=== PATIENT | male | born 1975 | race Caucasian/White ===

== ENCOUNTER → 2020-06-27 | Outpatient (CLI) | payer OTHER ==
--- NOTE | 2020-06-27 12:48 | RAD ---
Right lower extremity venous ultrasound, : History: Pain right lower leg, M 79.661 Duplex evaluation including grayscale, color flow and spectral Doppler analysis was performed. The femoral and popliteal veins show no filling defects to suggest DVT. The visualized calf veins are unremarkable. There is a mildly prominent lymph node at the right groin. IMPRESSION: 1. There is no sonographic evidence of deep vein thrombosis in the right lower extremity. 2. Prominent lymph node right groin Electronically signed by: Agapito Patel MD (06/27/2020 12:46 PM) [id number]
== END ==
LOC: US 11:48
PROVIDERS: ATTEND Specialist
DX: R59.0 Localized enlarged lymph nodes (principal)
CPT/HCPCS: 93971

== ENCOUNTER 2020-10-24 09:16 | Emergency (ER) | payer OTHER ==
[~2020-10-24] VITALS: Ht 172.7 cm; Wt 88.1 kg
[2020-10-24 09:16] VITALS: BP 145/92
[2020-10-24] MEDS ORDERED: HYDROcodone/APAP 5/325MG 1 TAB TABLET PO ONE (09:45)
--- NOTE | 2020-10-24 10:00 | PHYS DOC ---
General Adult EDM: Chief Complaint: MECHANICAL FALL HPI: HPI: Patient is a 45-year-old male coming in after a fall on the ice. Patient fell onto his back and hit the back of his head. No loss of consciousness. Has a laceration to the back of his head. Denies any vision changes, nausea, vomiting. Last tetanus within 5 years. Has a history of liver disease and low platelets. Does not take any blood thinners. He otherwise has been well without any fevers, cough, vomiting or diarrhea. Review of Systems: Review of Systems: All other systems within normal limits except for as noted in the HPI Current Medications: Current Meds: Current Medications Medications (Trade) Dose Ordered Sig/Maolu Start Time Stop Time Status Last Admin Dose Admin Acetaminophen/ Hydrocodone Bitart (Lortab 5/325) 1 tab 1X ONCE 10/24/20 09:45 10/24/20 09:46 DC Allergies: Allergies: Allergies Coded Allergies Type Severity Reaction Last Updated Verified No Known Drug Allergies 10/24/20 No Physical Exam: PE: Constitutional: Well developed, well nourished, no acute distress, non-toxic appearance. [] HENT: Normocephalic, hematoma to occiput, bilateral external ears normal, nose normal. [] Eyes: PERRLA, conjunctiva normal, no discharge. [] Neck: C-spine tenderness] Cardiovascular: Regular rate and rhythm, brisk cap refill [] Lungs & Thorax: Non labored symmetric respirations, no tachypnea or respiratory distress [] Abdomen: Soft, nondistended. Skin: Warm, dry, no erythema, no rash. 2.5 cm laceration to occiput [] Back: Thoracic and lumbar tenderness, no CVA tenderness, no step-off or deformities. [] Extremities: No deformities, range of motion grossly intact, no lower extremity edema [] Neurologic: Alert and oriented X 3, no focal deficits noted. [] Psychologic: Affect normal, judgement normal, mood normal. [] EKG: EKG: [] Radiology/Procedures: Radiology/Procedures: PROCEDURE: CT HEAD AND CERVICAL SPINE WO EXAM: CT Head without IV contrast INDICATION: Reason: fall / Spl. Instructions: / History: TECHNIQUE: Multi-detector row CT images were obtained of the head without the use of IV contrast. All CT scans performed at this facility utilize dose optimization techniques as appropriate to the exam, including the following: Automated exposure control and adjustment of the mA and/or KV according to patient size (this includes techniques or standardized protocols for targeted exams where dose is indication/reason for exam). COMPARISON: None FINDINGS: BRAIN PARENCHYMA: No evidence of acute intraparenchymal hemorrhage or infarct. No abnormal parenchymal density or mass. VENTRICLES & EXTRA-AXIAL SPACES: Ventricles are within normal limits. Basilar cisterns are patent. No pathologic extra-axial fluid collection or mass. ORBITS: Orbital contents are unremarkable. SINUSES: Scattered mucosal thickening in the ethmoid air cells and right maxillary sinus is noted. There are bilateral mastoid effusions with surgical changes from previous right mastoidectomy OSSEOUS & SOFT TISSUES: Calvarium and skull base are intact. IMPRESSION: No acute intracranial pathology. 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 EXAM: CT Cervical Spine without IV contrast INDICATION: Reason: fall / Spl. Instructions: / History: TECHNIQUE: Multi-detector row CT images were obtained through the cervical spine without the use of IV contrast. Post-processing sagittal and coronal reconstructed images were obtained for interpretation. All CT scans performed at this facility utilize dose optimization techniques as appropriate to the exam, including the following: Automated exposure control and adjustment of the mA and/or KV according to patient size (this includes techniques or standardized protocols for targeted exams where dose is indication/reason for exam). COMPARISON: None FINDINGS: CRANIOCERVICAL JUNCTION: Unremarkable. ALIGNMENT: Alignment is within normal limits. OSSEOUS: No evidence of fracture or bone destruction. DISC SPACES: Disc osteophyte complex at C5-C6 results in minimal flattening of the ventral thecal sac but no high-grade spinal canal stenosis on noncontrast CT but FACET JOINTS: Unremarkable. SPINAL CANAL: Unremarkable. NEUROFORAMINA: Unremarkable. SOFT TISSUES: Multiple mildly prominent cervical lymph nodes are present bilaterally. These are most conspicuous in the level 2 brianne station. IMPRESSION: No acute traumatic findings in the cervical spine with mild lower cervical spinal degenerative changes noted.[] EXAM: CT Thoracic Spine without IV contrast INDICATION: Reason: fall / Spl. Instructions: / History: TECHNIQUE: Multi-detector row CT images were obtained through the thoracic spine without the use of IV contrast. Post-processing sagittal and coronal reconstructed images were obtained for interpretation. All CT scans performed at this facility utilize dose optimization techniques as appropriate to the exam, including the following: Automated exposure control and adjustment of the mA and/or KV according to patient size (this includes techniques or standardized protocols for targeted exams where dose is indication/reason for exam). COMPARISON: None FINDINGS: ALIGNMENT: Alignment is within normal limits. OSSEOUS: No evidence of fracture or bone destruction. DISC SPACES: Unremarkable. FACET JOINTS: Unremarkable. SPINAL CANAL: Unremarkable. NEUROFORAMINA: Unremarkable. SOFT TISSUES: Unremarkable. IMPRESSION: Normal CT of the thoracic spine. EXAM: CT Lumbar Spine without IV contrast INDICATION: Reason: fall / Spl. Instructions: / History: TECHNIQUE: Multi-detector row CT images were obtained through the lumbar spine without the use of IV contrast. Post-processing sagittal and coronal reconstructed images were obtained for interpretation. All CT scans performed at this facility utilize dose optimization techniques as appropriate to the exam, including the following: Automated exposure control and adjustment of the mA and/or KV according to patient size (this includes techniques or standardized protocols for targeted exams where dose is indication/reason for exam). COMPARISON: None FINDINGS: The lowest fully formed disc is referred to as the L5-S1 level. ALIGNMENT: Alignment is within normal limits. OSSEOUS: No evidence of fracture or bone destruction. DISC SPACES: Mild disc space narrowing at L5-S1 is present with vacuum phenomenon and endplate sclerosis with endplate osteophytic spurring. FACET JOINTS: Unremarkable. SPINAL CANAL: Unremarkable. NEUROFORAMINA: Unremarkable. SOFT TISSUES: Multiple prominent mesenteric and retroperitoneal varices are incidentally noted. IMPRESSION: No acute traumatic findings in the lumbar spine with lumbosacral junction disc degenerative change. Heart Score: Risk Factors: Risk Factors: DM, Current or recent (<one month) smoker, HTN, HLP, family history of CAD, obesity. Risk Scores: Score 0 - 3: 2.5% MACE over next 6 weeks - Discharge Home Score 4 - 6: 20.3% MACE over next 6 weeks - Admit for Clinical Observation Score 7 - 10: 72.7% MACE over next 6 weeks - Early Invasive Strategies Course & Med Decision Making: Course & Med Decision Making Pertinent Labs and Imaging studies reviewed. (See chart for details) Head wound cleaned and is superficial, no separation. Discussed wound care, does not need sutures or annmarie [] Dragon Disclaimer: Alonzo Disclaimer: This electronic medical record was generated, in whole or in part, using a voice recognition dictation system. Departure Departure: Impression: Primary Impression: Fall Additional Impression: Scalp abrasion Disposition: 01 DC HOME SELF CARE/HOMELESS Condition: STABLE Referrals: JOSE F ALDANA MD (PCP) Patient Instructions: Wound Care, [id number] WHITNEY HOWE MD Oct 24, 2020 10:00
--- NOTE | 2020-10-24 10:23 | RAD ---
EXAM: CT Head without IV contrast INDICATION: Reason: fall / Spl. Instructions: / History: TECHNIQUE: Multi-detector row CT images were obtained of the head without the use of IV contrast. All CT scans performed at this facility utilize dose optimization techniques as appropriate to the exam, including the following: Automated exposure control and adjustment of the mA and/or KV according to patient size (this includes techniques or standardized protocols for targeted exams where dose is ind ication/reason for exam). COMPARISON: None FINDINGS: BRAIN PARENCHYMA: No evidence of acute intraparenchymal hemorrhage or infarct. No abnormal parenchyma l density or mass. VENTRICLES & EXTRA-AXIAL SPACES: Ventricles are within normal limits. Basilar cisterns are patent. N o pathologic extra-axial fluid collection or mass. ORBITS: Orbital contents are unremarkable. SINUSES: Scattered mucosal thickening in the ethmoid air cells and right maxillary sinus is noted. T here are bilateral mastoid effusions with surgical changes from previous right mastoidectomy OSSEOUS & SOFT TISSUES: Calvarium and skull base are intact. IMPRESSION: No acute intracranial pathology. Paranasal sinus and bilateral mastoid inflammatory mucosal disease with prior bilateral mastoidectomi es. EXAM: CT Cervical Spine without IV contrast INDICATION: Reason: fall / Spl. Instructions: / History: TECHNIQUE: Multi-detector row CT images were obtained through the cervical spine without the use of IV contrast. Post-processing sagittal and coronal reconstructed images were obtained for interpretati on. All CT scans performed at this facility utilize dose optimization techniques as appropriate to th e exam, including the following: Automated exposure control and adjustment of the mA and/or KV accord ing to patient size (this includes techniques or standardized protocols for targeted exams where dose is indication/reason for exam). COMPARISON: None FINDINGS: CRANIOCERVICAL JUNCTION: Unremarkable. ALIGNMENT: Alignment is within normal limits. OSSEOUS: No evidence of fracture or bone destruction. DISC SPACES: Disc osteophyte complex at C5-C6 results in minimal flattening of the ventral thecal sa c but no high-grade spinal canal stenosis on noncontrast CT but FACET JOINTS: Unremarkable. SPINAL CANAL: Unremarkable. NEUROFORAMINA: Unremarkable. SOFT TISSUES: Multiple mildly prominent cervical lymph nodes are present bilaterally. These are most conspicuous in the level 2 brianne station. IMPRESSION: No acute traumatic findings in the cervical spine with mild lower cervical spinal degenerative change s noted. Electronically signed by: Addison Reyes MD (10/24/2020 10:21 AM) [facility] [place]
--- NOTE | 2020-10-24 10:31 | RAD ---
EXAM: CT Thoracic Spine without IV contrast INDICATION: Reason: fall / Spl. Instructions: / History: TECHNIQUE: Multi-detector row CT images were obtained through the thoracic spine without the use of IV contrast. Post-processing sagittal and coronal reconstructed images were obtained for interpretati on. All CT scans performed at this facility utilize dose optimization techniques as appropriate to th e exam, including the following: Automated exposure control and adjustment of the mA and/or KV accord ing to patient size (this includes techniques or standardized protocols for targeted exams where dose is indication/reason for exam). COMPARISON: None FINDINGS: ALIGNMENT: Alignment is within normal limits. OSSEOUS: No evidence of fracture or bone destruction. DISC SPACES: Unremarkable. FACET JOINTS: Unremarkable. SPINAL CANAL: Unremarkable. NEUROFORAMINA: Unremarkable. SOFT TISSUES: Unremarkable. IMPRESSION: Normal CT of the thoracic spine. EXAM: CT Lumbar Spine without IV contrast INDICATION: Reason: fall / Spl. Instructions: / History: TECHNIQUE: Multi-detector row CT images were obtained through the lumbar spine without the use of IV contrast. Post-processing sagittal and coronal reconstructed images were obtained for interpretation . All CT scans performed at this facility utilize dose optimization techniques as appropriate to the exam, including the following: Automated exposure control and adjustment of the mA and/or KV accordin g to patient size (this includes techniques or standardized protocols for targeted exams where dose i s indication/reason for exam). COMPARISON: None FINDINGS: The lowest fully formed disc is referred to as the L5-S1 level. ALIGNMENT: Alignment is within normal limits. OSSEOUS: No evidence of fracture or bone destruction. DISC SPACES: Mild disc space narrowing at L5-S1 is present with vacuum phenomenon and endplate scler osis with endplate osteophytic spurring. FACET JOINTS: Unremarkable. SPINAL CANAL: Unremarkable. NEUROFORAMINA: Unremarkable. SOFT TISSUES: Multiple prominent mesenteric and retroperitoneal varices are incidentally noted. IMPRESSION: No acute traumatic findings in the lumbar spine with lumbosacral junction disc degenerative change. Electronically signed by: Addison Reyes MD (10/24/2020 10:29 AM) [facility] [place]
[2020-10-24 10:45] LABS: BASO # 0.1 x10^3/uL (0.0-0.2); BASO % 2 % (0-3); EOS # 0.2 x10^3/uL (0.0-0.7); EOS % 4 % (0-3); HEMATOCRIT 28.5 % (39.0-53.0); LYMPH % 18 % (24-48); MEAN CORPUSCULAR HEMOGLOBIN 26 pg (25-35); MEAN CORPUSCULAR HGB CONC 32 g/dL (31-37); MEAN CORPUSCULAR VOLUME 83 fL (79-100); MONO # 0.9 x10^3/uL (0.0-1.1); MONO % 17 % (0-9); NEUT # 3.2 x10^3uL (1.8-7.7); NEUT % 58 % (31-73); PLATELET COUNT 66 x10^3/uL (140-400); RED BLOOD COUNT 3.45 x10^6/uL (4.30-5.70); RED CELL DISTRIBUTION WIDTH 17.7 % (11.5-14.5); WHITE BLOOD COUNT 5.5 x10^3/uL (4.0-11.0)
[2020-10-24 11:06] LABS: CALCIUM 9.1 mg/dL (8.5-10.1); CREATININE 0.7 mg/dL (0.7-1.3); GFR 122.5; POTASSIUM 3.7 mmol/L (3.5-5.1)
[2020-10-24 11:14] LABS: ALBUMIN 2.5 g/dL (3.4-5.0); ALBUMIN/GLOBULIN RATIO 0.4 (1.0-1.7); TOTAL PROTEIN 8.3 g/dL (6.4-8.2)
== END 2020-10-24 11:40 | disposition home or self-care (01) ==
LOC: ER 09:16
DX: S01.01XA Laceration without foreign body of scalp, initial encounter (principal); W00.9XXA Unspecified fall due to ice and snow, initial encounter; Y93.89 Activity, other specified; Y92.89 Other specified places as the place of occurrence of the external cause; Y99.8 Other external cause status
CPT/HCPCS: 36415; 70450; 72125; 72128; 72131; 80053; 85025; 99285-25

== ENCOUNTER 2021-03-17 21:20 | Emergency (ER) | payer OTHER ==
[~2021-03-17] VITALS: Ht 172.7 cm; Wt 88.1 kg
[2021-03-17 21:25] VITALS: BP 162/100
[2021-03-17] MEDS ORDERED: SILVER NITRATE STICK TP ONE ×2 (21:58→22:00)
--- NOTE | 2021-03-17 22:20 | PHYS DOC ---
Past History Past Medical History: Alcoholism, Anemia, Hypertension, Liver Disease, Other Past Surgical History: Appendectomy Alcohol Use: Sober General Adult EDM: Chief Complaint: NOSEBLEED HPI: HPI: 45-year-old male presents with external nosebleed. The patient has varicose veins. He has them on his nose as well. He has had a left superficial noseb leed for about 3 hours. He has been unable to get to stop so he came to the emergency room. Patient denies shortness of breath or dizziness. He has no other complaints at this time. Review of Systems: Review of Systems: Constitutional: Denies fever or chills Eyes: Denies change in visual acuity HENT: Denies nasal congestion or sore throat Respiratory: Denies cough or shortness of breath Cardiovascular: Denies chest pain or edema GI: Denies abdominal pain, nausea, vomiting, bloody stools or diarrhea : Denies dysuria Musculoskeletal: Denies back pain or joint pain Integument: Nosebleed left external nose Neurologic: Denies headache, focal weakness or sensory changes Endocrine: Denies polyuria or polydipsia Lymphatic: Denies swollen glands Psychiatric: Denies depression or anxiety Current Medications: Current Meds: Current Medications Medications (Trade) Dose Ordered Sig/Malou Start Time Stop Time Status Last Admin Dose Admin Silver Nitrate/ Potassium Nitrate (Silver Nitrate Stick) 1 each 1X ONCE 03/17/21 22:00 03/17/21 22:13 DC 03/17/21 22:00 1 EACH Allergies: Allergies: Allergies Coded Allergies Type Severity Reaction Last Updated Verified lisinopril Allergy Unknown 03/17/21 Yes Physical Exam: PE: Constitutional: Well developed, well nourished, no acute distress, non-toxic appearance. [] HENT: Normocephalic, atraumatic, bilateral external ears normal, oropharynx moist, no oral exudates, nose normal. [] Eyes: PERRLA, EOMI, conjunctiva normal, no discharge. [] Neck: Normal range of motion, no tenderness, supple, no stridor. [] Cardiovascular: Heart rate regular rhythm, no murmur [] Lungs & Thorax: Bilateral breath sounds clear to auscultation [] Abdomen: Bowel sounds normal, soft, no tenderness, no masses, no pulsatile masses. [] Skin: Pinpoint nosebleed of the left external nose [] Back: No tenderness, no CVA tenderness. [] Extremities: No tenderness, no cyanosis, no clubbing, ROM intact, no edema. [] Neurologic: Alert and oriented X 3, normal motor function, normal sensory function, no focal deficits noted. [] Psychologic: Affect normal, judgement normal, mood normal. [] Current Patient Data: Vital Signs: Vital Signs Date Time Temp Pulse Resp B/P (MAP) Pulse Ox O2 Delivery O2 Flow Rate FiO2 03/17/21 21:25 98.0 93 162/100 (120) 98 03/17/21 21:20 16 Room Air EKG: EKG: [] Radiology/Procedures: Radiology/Procedures: [] Heart Score: C/O Chest Pain: N/A Risk Factors: Risk Factors: DM, Current or recent (<one month) smoker, HTN, HLP, family history of CAD, obesity. Risk Scores: Score 0 - 3: 2.5% MACE over next 6 weeks - Discharge Home Score 4 - 6: 20.3% MACE over next 6 weeks - Admit for Clinical Observation Score 7 - 10: 72.7% MACE over next 6 weeks - Early Invasive Strategies Course & Med Decision Making: Course & Med Decision Making Pertinent Labs and Imaging studies reviewed. (See chart for details) The patient's bleeding would not stop with direct pressure. I was able to make it stop with cauterization using silver nitrate. The patient stable for discharge at this time. [] Dragon Disclaimer: Dragon Disclaimer: This electronic medical record was generated, in whole or in part, using a voice recognition dictation system. Departure Departure: Impression: Primary Impression: Bleeding from varicose vein Disposition: HOME / SELF CARE / HOMELESS Condition: IMPROVED Referrals: JOSE F ALDANA MD (PCP) Patient Instructions: Bleeding Varicose Veins MARK CHAMPION DO Mar 17, 2021 22:20
== END 2021-03-17 22:50 | disposition home or self-care (01) ==
LOC: ER 21:20
DX: I83.899 Varicose veins of unspecified lower extremity with other complications (principal); I10 Essential (primary) hypertension; F10.20 Alcohol dependence, uncomplicated; Z86.2 Personal history of diseases of the blood and blood-forming organs and certain disorders involving the immune mechanism; Z88.8 Allergy status to other drugs, medicaments and biological substances; Y90.9 Presence of alcohol in blood, level not specified
CPT/HCPCS: 99282

== ENCOUNTER 2021-07-06 17:15 | Emergency (ER) | payer OTHER ==
[~2021-07-06] VITALS: Ht 172.7 cm; Wt 78.5 kg
[2021-07-06] MEDS ORDERED: GELATIN SPONGE SIZE 12-7MM SPONGE. ONE (17:35)
--- NOTE | 2021-07-06 17:44 | PHYS DOC ---
Past History Past Medical History: Alcoholism, Anemia, Hypertension, Liver Disease, Other Additional Past Medical Histor: cirrhosis of the liver (MEKA HENSON DO) Past Surgical History: Appendectomy (MEKA HENSON DO) Alcohol Use: Sober (MEKA HENSON DO) General Adult EDM: Chief Complaint: NOSEBLEED HPI: HPI: 45-year-old male past medical history of daily alcohol abuse, presents the ED with complaints of picking outside of his right nose, now with persistent bleeding, unable to stop with direct pressure. Takes no routine medications-is not on any blood thinners. Reports his tetanus was up-to-date in the past 5 years. Was drinking alcohol prior to ED arrival. Denies any blunt trauma, bleeding disorders or need for blood transfusions. (MEKA HENSON DO) Review of Systems: Review of Systems: Constitutional: Denies fever or chills Eyes: Denies change in visual acuity HENT: Denies nasal congestion or sore throat Respiratory: Denies cough or shortness of breath Cardiovascular: Denies chest pain or edema GI: Denies nausea or vomiting Musculoskeletal: Denies back pain or joint pain Integument: Denies rash or cyanosis Neurologic: Denies focal weakness or sensory changes Psychiatric: Denies depression or anxiety (MEKA HENSON DO) Current Medications: Current Meds: Current Medications Medications (Trade) Dose Ordered Sig/Malou Start Time Stop Time Status Last Admin Dose Admin Gelatin (Gelfoam Size 12-7mm) 1 each STK-MED ONCE 07/06/21 17:35 07/06/21 17:35 DC (MEKA HENSON DO) Allergies: Allergies: Allergies Coded Allergies Type Severity Reaction Last Updated Verified lisinopril Allergy Unknown 07/06/21 Yes (MEKA HENSON DO) Physical Exam: PE: Constitutional: Hypertensive, afebrile, alcohol on breath HENT: Normocephalic, atraumatic, right external nasal bridge with 2 mm area of bleeding, no interior/anterior/or exterior nasal bleeding Eyes: PERRLA, EOMI, conjunctiva normal, no discharge. Neck: Normal range of motion, supple, Cardiovascular: S1/2 present, tachycardic Lungs & Thorax: Speaking in full sentences, bilateral equal chest rise, no tachypnea or increased work of breathing Skin: Warm, dry, no contusions/petechiae or bruising Extremities: No tenderness, no cyanosis, Neurologic: Alert and oriented X 3, normal motor function, normal sensory function, no focal deficits noted. [] Psychologic: Affect normal, judgement normal, mood normal. [] ([facility] Current Patient Data: Vital Signs: Vital Signs Date Time Temp Pulse Resp B/P (MAP) Pulse Ox O2 Delivery O2 Flow Rate FiO2 07/06/21 17:20 98.0 105 22 141/107 (118) 96 Room Air ([facility]) EKG: EKG: [] ([facility]) Radiology/Procedures: Radiology/Procedures: [] ([facility]) Heart Score: C/O Chest Pain: No Risk Factors: Risk Factors: DM, Current or recent (<one month) smoker, HTN, HLP, family history of CAD, obesity. Risk Scores: Score 0 - 3: 2.5% MACE over next 6 weeks - Discharge Home Score 4 - 6: 20.3% MACE over next 6 weeks - Admit for Clinical Observation Score 7 - 10: 72.7% MACE over next 6 weeks - Early Invasive Strategies ([facility]) Course & Med Decision Making: Course & Med Decision Making Pertinent Labs and Imaging studies reviewed. (See chart for details) Concern for external bleeding after picking outside of patient's nose and nonalcoholic. CBC for platelets pending. Patient is tachycardic, likely related to alcohol intoxication. Bleeding not resolved with gelatin sponge application. Quick clot applied. Due to shift change patient was signed out to oncoming physician Dr. Bernal for further medical evaluation and disposition. ([facility]) Course & Med Decision Making Patient care handed off to me at checkout pending labs and hemostasis of skin lesion. Vital signs initially notable for tachycardia which resolved in the ED. Placed L ET on wound and did direct pressure which helped achieve hemostasis. Laboratory analysis notable for anemia and thrombocytopenia which patient states is normal for him as he has liver issues. States that 34 is actually higher than his last 1. Discussed strategies for controlling superficial bleeds like this at home. Advised to call his primary care physician KORIN in the morning to discuss ED visit and set up a follow-up KORIN. Gave strict return precautions to the ED. Patient grateful, verbalized understanding and agreed with plan of discharge. (JULITA BERNAL MD) Dragon Disclaimer: Dragon Disclaimer: This electronic medical record was generated, in whole or in part, using a voice recognition dictation system. (MEKA HENSON DO) Departure Departure: Impression: Primary Impression: Alcohol abuse Additional Impression: Hemorrhage of skin lesion Disposition: HOME / SELF CARE / HOMELESS Condition: GOOD Referrals: JOSE F ALDANA MD (PCP) Additional Instructions: Thank you for coming into the emergency department tonight and allowing us to take care of you. As we discussed, you can use the strategies employed here with direct pressure and ice and keeping your head above your heart to control superficial skin lesions. Is very important that you follow-up in the morning with your primary care physician to let them know that your hemoglobin was 10.6 and your platelets were 10.4. Please make an appointment as soon as possible. Please come back to the ED with new or concerning symptoms as discussed. MEKA HENSON DO Jul 06, 2021 17:44 JULITA BERNAL MD Jul 06, 2021 19:55
[2021-07-06] MEDS: GELATIN SPONGE SIZE 12-7MM SPONGE. TP ONE (17:45)
[2021-07-06 18:22] LABS: BASO # 0.2 x10^3/uL (0.0-0.2); BASO % 3 % (0-3); EOS # 0.1 x10^3/uL (0.0-0.7); EOS % 2 % (0-3); HEMOGLOBIN 10.6 g/dL (13.0-17.5); LYMPH # 1.1 x10^3/uL (1.0-4.8); LYMPH % 21 % (24-48); MEAN CORPUSCULAR HEMOGLOBIN 36 pg (25-35); MEAN CORPUSCULAR HGB CONC 33 g/dL (31-37); MEAN CORPUSCULAR VOLUME 109 fL (79-100); MONO # 0.7 x10^3/uL (0.0-1.1); MONO % 14 % (0-9); NEUT # 3.1 x10^3uL (1.8-7.7); NEUT % 60 % (31-73); PLATELET COUNT 34 x10^3/uL (140-400); RED BLOOD COUNT 2.95 x10^6/uL (4.30-5.70); RED CELL DISTRIBUTION WIDTH 17.6 % (11.5-14.5); WHITE BLOOD COUNT 5.2 x10^3/uL (4.0-11.0)
[2021-07-06] MEDS ORDERED: LIDOCAINE/EPI/TETRACAINE TOPICAL GEL 3 ML. TP ONE (18:53)
[2021-07-06] MEDS ORDERED: MIDAZOLAM HCL PF 5 MG/5 ML VIAL. IV ONE (19:00)
[2021-07-06 19:02] LABS: PLT ESTIMATE DECREASED (ADEQUATE)
[2021-07-06] MEDS: LIDOCAINE/EPI/TETRACAINE TOPICAL GEL 3 ML. TP ONE (19:15)
[2021-07-06 20:25] VITALS: BP 147/87
== END 2021-07-06 20:25 | disposition home or self-care (01) ==
LOC: ER 17:15
DX: F10.20 Alcohol dependence, uncomplicated (principal); R58 Hemorrhage, not elsewhere classified; L98.8 Other specified disorders of the skin and subcutaneous tissue; I10 Essential (primary) hypertension; Z86.2 Personal history of diseases of the blood and blood-forming organs and certain disorders involving the immune mechanism; Z88.8 Allergy status to other drugs, medicaments and biological substances; Y90.9 Presence of alcohol in blood, level not specified
CPT/HCPCS: 36415; 85025; 99283

== ENCOUNTER 2021-10-16 15:03 | Observation (INO) | payer SELFPAY ==
[~2021-10-16] VITALS: Ht 172.7 cm; Wt 75.1 kg
[2021-10-16] MEDS ORDERED: IV NORMAL SALINE 1,000ML 1,000 ML IV ONE (15:30)
[2021-10-16 15:49] LABS: BASO # 0.3 x10^3/uL (0.0-0.2); BASO % 7 % (0-3); EOS % 1 % (0-3); HEMATOCRIT 26.3 % (39.0-53.0); HEMOGLOBIN 8.6 g/dL (13.0-17.5); LYMPH # 0.9 x10^3/uL (1.0-4.8); LYMPH % 18 % (24-48); MEAN CORPUSCULAR HEMOGLOBIN 32 pg (25-35); MEAN CORPUSCULAR HGB CONC 33 g/dL (31-37); MEAN CORPUSCULAR VOLUME 99 fL (79-100); MONO % 20 % (0-9); NEUT # 2.7 x10^3uL (1.8-7.7); NEUT % 55 % (31-73); PLATELET COUNT 130 x10^3/uL (140-400); RED BLOOD COUNT 2.66 x10^6/uL (4.30-5.70); RED CELL DISTRIBUTION WIDTH 19.2 % (11.5-14.5)
--- NOTE | 2021-10-16 15:52 | EKG ---
[address] [address] Test Date: 2021-10-16 Test Time: 15:43:46 Pat Name: ANDRE ZAMAN Department: Room: Gender: M Small Business Representative: CHARLENE : 1975 Requested By: MELANY COWART Order Number: [id number] Reading MD: Measurements Intervals [place] Rate: 87 P: 56 IN: 134 QRS: 66 QRSD: 92 T: 63 QT: 386 QTc: 465 Interpretive Statements SINUS RHYTHM NORMAL ECG RI6.02 No previous ECG available for comparison
[2021-10-16 15:58] LABS: CALCIUM 8.6 mg/dL (8.5-10.1); GFR 80.8; POTASSIUM 3.9 mmol/L (3.5-5.1)
[2021-10-16 16:02] LABS: ACETAMIN < 2.0 mcg/mL (10-30); SALIC < 2.8 mg/dL (2.8-20.0)
[2021-10-16 16:03] LABS: ETHANOL < 10 mg/dL (0-10)
[2021-10-16 16:17] LABS: ALBUMIN 2.5 g/dL (3.4-5.0); ALBUMIN/GLOBULIN RATIO 0.5 (1.0-1.7); MAGNESIUM 1.4 mg/dL (1.8-2.4); TOTAL BILIRUBIN 2.6 mg/dL (0.2-1.0); TOTAL PROTEIN 7.8 g/dL (6.4-8.2)
[2021-10-16] MEDS ORDERED: MAGNESIUM SULFATE 2GM 50 ML IV ONE ×2 (16:45→20:30)
[2021-10-16] MEDS ORDERED: FOLIC ACID 1 MG TABLET PO ONE (16:45)
[2021-10-16] MEDS ORDERED: THIAMINE 200 MG/2 ML VIAL. IV ONE (16:48)
[2021-10-16] MEDS ORDERED: IV NORMAL SALINE 50ML 50 ML ONE ×2 (16:48→21:28)
[2021-10-16] MEDS ORDERED: THIAMINE INJ 100 MG in IV NORMAL SALINE 50ML 50 ML IV ONE (17:00)
--- NOTE | 2021-10-16 17:30 | RAD ---
Exam: CT head INDICATION: Altered mental status TECHNIQUE: Sequential axial images through the head were obtained without the administration of IV co ntrast. Exposure: One or more of the following in the visualized dose reduction techniques were utilized for this examination: 1. Automated exposure control 2. Adjustment of the MA and/or KV according to patient size 3. Use of iterative of reconstructive technique Comparisons: None FINDINGS: No focal parenchymal lesion or hemorrhage is identified. There is no midline shift or sulcal effaceme nt. No acute vascular territory infarction is identified. Carbajal-white distinction is preserved. The ventricular system is within normal limits without compression hydrocephalus. The basal cisterns are well maintained. The visualized portions of the paranasal sinuses and mastoid air cells are well-pneumatized. No acute fractures. IMPRESSION: No acute intracranial abnormality. Electronically signed by: Lucas Castro MD (10/16/2021 5:27 PM) [facility]
--- NOTE | 2021-10-16 17:52 | RAD ---
Exam: Chest one view INDICATION: Altered mental status TECHNIQUE: Frontal view of the chest Comparisons: None FINDINGS: The cardiomediastinal silhouette and pulmonary vessels are within normal limits. Patchy bilateral airspace disease. No pleural effusion. IMPRESSION: Bilateral airspace disease favored be infectious or inflammatory in etiology. Electronically signed by: Lucas Castro MD (10/16/2021 5:50 PM) [facility]
[2021-10-16] MEDS ORDERED: IOHEXOL 300 MG/ML 75 ML VIAL. IV ONE (18:45)
[2021-10-16] MEDS ORDERED: CONTRAST GIVEN. MC PRN (18:45)
--- NOTE | 2021-10-16 20:09 | RAD ---
Exam: CT abdomen and pelvis with contrast INDICATION: Elevated lipase, rule out pancreatitis TECHNIQUE: Sequential axial images through the abdomen and pelvis obtained following the administrati on of 78 mL of Isovue-370 IV contrast. Sagittal and coronal reformatted images were reconstructed fro m the axial data and reviewed. Exposure: One or more of the following in the visualized dose reduction techniques were utilized for this examination: 1. Automated exposure control 2. Adjustment of the MA and/or KV according to patient size 3. Use of iterative of reconstructive technique Comparisons: None FINDINGS: Heart size is normal. No pericardial effusion. Visualized lung bases are clear. No pleural effusion. Nodular contour the liver. Spleen is enlarged measuring up to 15 cm in long axis. Pancreas and adrena ls are unremarkable. Gallbladder is mildly distended. No perinephric inflammation or hydronephrosis. No renal or ureteral calculi are identified. Bladder is partially distended and not well evaluated. Prostate is not enlarged. Large and small bowel are unremarkable. Appendix is absent. No free intra-abdominal air or fluid. No obstruction. Abdominal aorta has normal course and caliber. Abdominal vasculature is patent. No enlarged intra-abdominal lymph nodes are identified. Extensive intra-abdominal collateral vessels are noted. No suspicious osseous lesions or acute fractures. IMPRESSION: 1. No peripancreatic inflammatory changes or fluid collection. 2. Cirrhotic morphology of liver with secondary sequela of portal hypertension including splenomegal y and intra-abdominal collateral vasculature. Electronically signed by: Lucas Castro MD (10/16/2021 8:07 PM) [facility]
[2021-10-16] MEDS ORDERED: AZITHROMYCIN 500 MG in IV NORMAL SALINE 250ML 250 ML IV ONE (20:30)
--- NOTE | 2021-10-16 20:32 | PHYS DOC ---
Past History Past Medical History: Alcoholism, Anemia, Hypertension, Liver Disease, Other Additional Past Medical Histor: ETOH abuse; low Hgb; low iron; psoriasis (SUPAMELANY Fadia [employer]) Past Surgical History: Appendectomy ([employer]) Alcohol Use: Heavy Social History Narrative: unknown (MELANY COWART Fadia [employer]) Adult General Chief Complaint Chief Complaint: WITHDRAWAL HPI HPI Patient is a 46-year-old male patient with a history of alcoholism, liver disease, anemia, who presents to the ED today to be evaluated for altered mental status that mother noted today when patient could not find the bathroom at home. Mother states patient drinks a pint of vodka daily. He had alcohol sometime this morning. Mother states patient was admitted at [facility] and discharged on Monday last week for anemia and liver cirrhosis. (USPAMELANY Fadia [employer]) Review of Systems Review of Systems Constitutional: Denies fever or chills [] Eyes: Denies change in visual acuity, redness, or eye pain [] HENT: Denies nasal congestion or sore throat [] Respiratory: Denies cough or shortness of breath [] Cardiovascular: No additional information not addressed in HPI [] GI: Denies abdominal pain, nausea, vomiting, bloody stools or diarrhea [] : Denies dysuria or hematuria [] Musculoskeletal: Denies back pain or joint pain [] Integument: Denies rash or skin lesions [] Neurologic: Reports altered mental status. Denies headache, focal weakness or sensory changes [] Psych reports alcohol ingestion All other systems were reviewed and found to be within normal limits, except as documented in this note. (MELANY COWART Fadia [employer]) Current Medications Current Medications Current Medications Medications (Trade) Dose Ordered Sig/Malou Start Time Stop Time Status Last Admin Dose Admin Azithromycin 500 mg/Sodium Chloride 250 ml @ 250 mls/hr 1X ONCE 10/16/21 20:30 10/16/21 21:29 UNV Ceftriaxone Sodium 1 gm/ Sodium Chloride 50 ml @ 100 mls/hr 1X ONCE 10/16/21 20:30 10/16/21 20:59 Folic Acid (Folic Acid) 1 mg 1X ONCE 10/16/21 16:45 10/16/21 16:46 DC 10/16/21 16:53 1 MG Info (Do NOT chart on this entry -- for MONITORING) 1 each PRN DAILY PRN 10/16/21 18:45 10/18/21 18:44 Iohexol (Omnipaque 300 Mg/ml) 75 ml 1X ONCE 10/16/21 18:45 10/16/21 18:46 DC 10/16/21 18:59 75 ML Lorazepam (Ativan Inj) 2 mg 1X ONCE 10/16/21 19:15 10/16/21 19:16 DC 10/16/21 19:48 2 MG Magnesium Sulfate 50 ml @ 25 mls/hr 1X ONCE 10/16/21 20:30 10/16/21 22:29 UNV Sodium Chloride 50 ml @ As Directed STK-MED ONCE 10/16/21 16:48 10/16/21 16:48 DC Thiamine HCl (Thiamine Vial) 200 mg STK-MED ONCE 10/16/21 16:48 10/16/21 16:48 DC Thiamine HCl 100 mg/Sodium Chloride 51 ml @ 102 mls/hr 1X ONCE 10/16/21 17:00 10/16/21 17:29 DC 10/16/21 16:55 102 MLS/HR (MELANY COWART M [employer]) Allergies Allergies Allergies Coded Allergies Type Severity Reaction Last Updated Verified lisinopril Allergy Unknown 10/16/21 Yes (MELANY COWART M [employer]) Physical Exam Physical Exam Constitutional: Well developed, well nourished, no acute distress, non-toxic appearance. [] HENT: Normocephalic, atraumatic, bilateral external ears normal, oropharynx moist, no oral exudates, nose normal. [] Eyes: PERRLA, EOMI, conjunctiva normal, no discharge. [] Neck: Normal range of motion, no tenderness, supple, no stridor. [] Cardiovascular:Heart rate regular rhythm Lungs & Thorax: Bilateral breath sounds clear to auscultation [] Abdomen: Bowel sounds normal, soft, no tenderness, no masses, no pulsatile m asses. [] Skin: Psoriasis lesions throughout the skin Back: No tenderness, no CVA tenderness. [] Extremities: No tenderness, no cyanosis, no clubbing, ROM intact, no edema. [] Neurologic: Alert and oriented X 2, normal motor function, normal sensory function, no focal deficits noted. Cranial nerves II through XII Psychologic: Restless. (MELANY COWART [employer]) Current Patient Data Vital Signs Vital Signs Date Time Temp Pulse Resp B/P (MAP) Pulse Ox O2 Delivery O2 Flow Rate FiO2 10/16/21 18:45 67 11 110/65 (80) 99 Room Air 10/16/21 15:40 98.8 Lab Results Laboratory Tests Test 10/16/21 15:20 White Blood Count 5.0 x10^3/uL (4.0-11.0) Red Blood Count 2.66 x10^6/uL (4.30-5.70) L Hemoglobin 8.6 g/dL (13.0-17.5) L Hematocrit 26.3 % (39.0-53.0) L Mean Corpuscular Volume 99 fL (79-100) Mean Corpuscular Hemoglobin 32 pg (25-35) Mean Corpuscular Hemoglobin Concent 33 g/dL (31-37) Red Cell Distribution Width 19.2 % (11.5-14.5) H Platelet Count 130 x10^3/uL (140-400) L Neutrophils (%) (Auto) 55 % (31-73) Lymphocytes (%) (Auto) 18 % (24-48) L Monocytes (%) (Auto) 20 % (0-9) H Eosinophils (%) (Auto) 1 % (0-3) Basophils (%) (Auto) 7 % (0-3) H Neutrophils # (Auto) 2.7 x10^3uL (1.8-7.7) Lymphocytes # (Auto) 0.9 x10^3/uL (1.0-4.8) L Monocytes # (Auto) 1.0 x10^3/uL (0.0-1.1) Eosinophils # (Auto) 0.0 x10^3/uL (0.0-0.7) Basophils # (Auto) 0.3 x10^3/uL (0.0-0.2) H Sodium Level 143 mmol/L (136-145) Potassium Level 3.9 mmol/L (3.5-5.1) Chloride Level 109 mmol/L (98-107) H Carbon Dioxide Level 19 mmol/L (21-32) L Anion Gap 15 (6-14) H Blood Urea Nitrogen 17 mg/dL (8-26) Creatinine 1.0 mg/dL (0.7-1.3) Estimated GFR (Cockcroft-Gault) 80.8 BUN/Creatinine Ratio 17 (6-20) Glucose Level 110 mg/dL (70-99) H Calcium Level 8.6 mg/dL (8.5-10.1) Magnesium Level 1.4 mg/dL (1.8-2.4) L Total Bilirubin 2.6 mg/dL (0.2-1.0) H Aspartate Amino Transferase (AST) 103 U/L (15-37) H Alanine Aminotransferase (ALT) 39 U/L (16-63) Alkaline Phosphatase 159 U/L (46-116) H Creatine Kinase 82 U/L (39-308) Creatine Kinase MB (Mass) 0.8 ng/mL (0.0-3.6) Creatine Kinase MB Relative Index 1.0 % (0-4) Troponin I High Sensitivity 12 ng/L (4-75) CV-Vgu-L-Type Natriuretic Peptide 212 pg/mL (0-124) H Total Protein 7.8 g/dL (6.4-8.2) Albumin 2.5 g/dL (3.4-5.0) L Albumin/Globulin Ratio 0.5 (1.0-1.7) L Lipase 550 U/L (73-393) H Salicylates Level < 2.8 mg/dL (2.8-20.0) L Salicylate Last Dose Date Unk Salicylate Last Dose Time Unk Acetaminophen Level < 2.0 mcg/mL (10-30) L Acetaminophen Last Dose Date Unk Acetaminophen Last Dose Time Unk Ethyl Alcohol Level < 10 mg/dL (0-10) (MELANY COWART APRN) EKG EKG [address] Azul sinus rhythm heart rate 57 no STEMI [] (MELANY COWART APRN) Radiology/Procedures Radiology/Procedures []PROCEDURE: CT ABD PELV W/ IV CONTRST ONLY Exam: CT abdomen and pelvis with contrast INDICATION: Elevated lipase, rule out pancreatitis TECHNIQUE: Sequential axial images through the abdomen and pelvis obtained following the administration of 78 mL of Isovue-370 IV contrast. Sagittal and coronal reformatted images were reconstructed from the axial data and reviewed. Exposure: One or more of the following in the visualized dose reduction techniques were utilized for this examination: 1. Automated exposure control 2. Adjustment of the MA and/or KV according to patient size 3. Use of iterative of reconstructive technique Comparisons: None FINDINGS: Heart size is normal. No pericardial effusion. Visualized lung bases are clear. No pleural effusion. Nodular contour the liver. Spleen is enlarged measuring up to 15 cm in long axis. Pancreas and adrenals are unremarkable. Gallbladder is mildly distended. No perinephric inflammation or hydronephrosis. No renal or ureteral calculi are identified. Bladder is partially distended and not well evaluated. Prostate is not enlarged. Large and small bowel are unremarkable. Appendix is absent. No free intra- abdominal air or fluid. No obstruction. Abdominal aorta has normal course and caliber. Abdominal vasculature is patent. No enlarged intra-abdominal lymph nodes are identified. Extensive intra- abdominal collateral vessels are noted. No suspicious osseous lesions or acute fractures. IMPRESSION: 1. No peripancreatic inflammatory changes or fluid collection. 2. Cirrhotic morphology of liver with secondary sequela of portal hypertension including splenomegaly and intra-abdominal collateral vasculature. Electronically signed by: Lucas Julien MD (10/16/2021 8:07 PM) [facility] DICTATED AND SIGNED BY: LUCAS JULIEN MD DATE: 10/16/211958 CC: JULITA BERNAL MD; JOSE F ALDANA MD; MELANY COWART [employer] ~MTH0 0 PROCEDURE: CT HEAD WO CONTRAST Exam: CT head INDICATION: Altered mental status TECHNIQUE: Sequential axial images through the head were obtained without the administration of IV contrast. Exposure: One or more of the following in the visualized dose reduction techniques were utilized for this examination: 1. Automated exposure control 2. Adjustment of the MA and/or KV according to patient size 3. Use of iterative of reconstructive technique Comparisons: None FINDINGS: No focal parenchymal lesion or hemorrhage is identified. There is no midline shift or sulcal effacement. No acute vascular territory infarction is identified. Carbajal-white distinction is preserved. The ventricular system is within normal limits without compression hydrocephalus. The basal cisterns are well maintained. The visualized portions of the paranasal sinuses and mastoid air cells are well- pneumatized. No acute fractures. IMPRESSION: No acute intracranial abnormality. Electronically signed by: Lucas Julien MD (10/16/2021 5:27 PM) [facility] DICTATED AND SIGNED BY: LUCAS JULIEN MD DATE: 10/16/21 172 CC: KATYA AZUL DO; JOSE F ALDANA MD; MELANY COWART APRN ~MTH0 0 PROCEDURE: PORTABLE CHEST 1V Exam: Chest one view INDICATION: Altered mental status TECHNIQUE: Frontal view of the chest Comparisons: None FINDINGS: The cardiomediastinal silhouette and pulmonary vessels are within normal limits. Patchy bilateral airspace disease. No pleural effusion. IMPRESSION: Bilateral airspace disease favored be infectious or inflammatory in etiology. Electronically signed by: Lucas Julien MD (10/16/2021 5:50 PM) [facility] DICTATED AND SIGNED BY: LUCAS JULIEN MD DATE: 10/16/21 1749 CC: KATYA AZUL DO; JOSE F ALDANA MD; MELANY COWART APRN ~MTH0 0 (MELANY COWART APRN) Heart Score C/O Chest Pain: N/A Risk Factors: Risk Factors: DM, Current or recent (<one month) smoker, HTN, HLP, family history of CAD, obesity. Risk Scores: Risk Factors: DM, Current or recent (<one month) smoker, HTN, HLP, family history of CAD, obesity. (MELANY COWART APRN) Course & Med Decision Making Course & Med Decision Making Pertinent Labs and Imaging studies reviewed. (See chart for details) This is a 46-year-old male patient with history of liver cirrhosis, alcoholism, presenting today to be evaluated for altered mental status that was noted by mother today. CT of the head is negative for any acute findings. Chest x-ray interpreted by radiologist as noted bilateral airspace disease favored be infectious or inflammatory in etiology. CBC with a normal WBC, hemoglobin 8.6 with hematocrit of 26.3. Platelet count 130. Magnesium 1.3, bilirubin 2.6, AST 103, ALT 39, ALK 159. Ammonia 49, lipase 550. Alcohol level less than 10 CT of the abdomen and pelvis noted forCirrhotic morphology of liver with se condary sequela of portal hypertension including splenomegaly and intra- abdominal collateral vasculature. Patient has been given a banana bag, normal saline, magnesium. Mother states patient's current mentation is not back to his baseline. She states patient is usually awake alert oriented and able to get up and walk on his own. [facility] does not have a bed to transfer this patient Spoke with the [facility] transfer line, they requested a COVID test but stated they are at capacity. Spoke with Dr. Azevedo about admitting this patient at [facility], he reports there is no beds. He states tomorrow morning if patient is still in the ED and there is bed we can call him or he can come see the patient. [id number] Bernal (MELANY COWART APRN) Course & Med Decision Making Did not see or evaluate patient. Did not discuss patient with [facility] [employer]. Agree with [employer]'s work-up and disposition per note (JULITA BERNAL MD) Dragon Disclaimer Dragon Disclaimer This electronic medical record was generated, in whole or in part, using a voice recognition dictation system. (MELANY COWART APRN) Departure Departure: Impression: Primary Impression: Hepatic encephalopathy Additional Impressions: Liver cirrhosis Alcoholism Hypomagnesemia Disposition: 02 SHORT TERM HOSPITAL Condition: STABLE Referrals: JOSE F ALDANA MD (PCP) Problem Qualifiers Additional Impressions: Liver cirrhosis Hepatic cirrhosis type: unspecified hepatic cirrhosis Ascites presence: without ascites Qualified Codes: K74.60 - Unspecified cirrhosis of liver MELANY COWART APRN Oct 16, 2021 20:32 JULITA BERNAL MD Oct 16, 2021 22:47
[2021-10-16] MEDS ORDERED: cefTRIAXone SODIUM 1 GM VIAL ONE (21:28)
[2021-10-16] MEDS ORDERED: IV NORMAL SALINE 250ML 250 ML ONE (21:28)
[2021-10-16] MEDS ORDERED: AZITHROMYCIN 500 MG VIAL. IV ONE (21:28)
[2021-10-17] MEDS ORDERED: IV RINGERS SOLUTION,LACTATED 1,000 ML IV ONE
[2021-10-17 05:26] LABS: CLARITY,URINE CLEAR; COLOR,URINE YELLOW
[2021-10-17 05:27] LABS: BACTERIA,URINE 0 /HPF (0-FEW); BILIRUBIN,URINE NEG (NEG); GLUCOSE,URINE NEG (NEG); NITRITE,URINE NEG (NEG); SQUAMOUS EPITHELIAL CELL,UR OCC /LPF; WBC,URINE RARE /HPF (0-4)
[2021-10-17 05:29] LABS: BARBITURATES NEG (NEG); BENZODIAZEPINES NEG (NEG); CANNABINOIDS NEG (NEG); COCAINE NEG (NEG); METHADONE NEG (NEG); OPIATES NEG (NEG); PHENCYCLIDINE NEG (NEG)
[2021-10-17 05:30] LABS: AMPHETAMINE/METHAMPHETAMINE NEG (NEG)
--- NOTE | 2021-10-17 08:38 | PHYS DOC ---
Past History Past Medical History: Alcoholism, Anemia, Hypertension, Liver Disease, Other Additional Past Medical Histor: ETOH abuse; low Hgb; low iron; psoriasis Past Surgical History: Appendectomy Alcohol Use: Heavy Social History Narrative: unknown Adult General Chief Complaint Chief Complaint: WITHDRAWAL HPI HPI Patient is a 46 year old male who presents with confusion. I assumed care of this patient from Dr. Clark at shift turnover. Review of Systems Review of Systems ROS not available as patient's mental status is such that he cannot answer questions. Current Medications Current Medications Current Medications Medications (Trade) Dose Ordered Sig/Malou Start Time Stop Time Status Last Admin Dose Admin Azithromycin (Zithromax) 500 mg STK-MED ONCE 10/16/21 21:28 10/16/21 21:28 DC Azithromycin 500 mg/Sodium Chloride 250 ml @ 250 mls/hr 1X ONCE 10/16/21 20:30 10/16/21 21:29 DC 10/16/21 21:44 250 MLS/HR Ceftriaxone Sodium 1 gm/ Sodium Chloride 50 ml @ 100 mls/hr 1X ONCE 10/16/21 20:30 10/16/21 20:59 DC 10/16/21 21:44 100 MLS/HR Ceftriaxone Sodium (Rocephin) 1 gm STK-MED ONCE 10/16/21 21:28 10/16/21 21:28 DC Folic Acid (Folic Acid) 1 mg 1X ONCE 10/16/21 16:45 10/16/21 16:46 DC 10/16/21 16:53 1 MG Info (Do NOT chart on this entry -- for MONITORING) 1 each PRN DAILY PRN 10/16/21 18:45 10/18/21 18:44 Iohexol (Omnipaque 300 Mg/ml) 75 ml 1X ONCE 10/16/21 18:45 10/16/21 18:46 DC 10/16/21 18:59 75 ML Lactated Ringer's 1,000 ml @ 1,000 mls/hr 1X ONCE 10/17/21 00:00 10/17/21 00:59 DC 10/17/21 04:00 1,000 MLS/HR Lorazepam (Ativan Inj) 1 mg 1X ONCE 10/17/21 07:30 10/17/21 07:31 DC 10/17/21 08:00 1 MG Magnesium Sulfate 50 ml @ 25 mls/hr 1X ONCE 10/16/21 20:30 10/16/21 22:29 DC 10/16/21 21:43 25 MLS/HR Sodium Chloride 50 ml @ As Directed STK-MED ONCE 10/16/21 21:28 10/16/21 21:28 DC Thiamine HCl (Thiamine Vial) 200 mg STK-MED ONCE 10/16/21 16:48 10/16/21 16:48 DC Thiamine HCl 100 mg/Sodium Chloride 51 ml @ 102 mls/hr 1X ONCE 10/16/21 17:00 10/16/21 17:29 DC 10/16/21 16:55 102 MLS/HR Allergies Allergies Allergies Coded Allergies Type Severity Reaction Last Updated Verified lisinopril Allergy Unknown 10/16/21 Yes Physical Exam Physical Exam Constitutional: Chronically ill-appearing male who is mildly agitated, confused HENT: atraumatic, moist mucous membranes Eyes: Pupils are equal and round and reactive Neck: Normal range of motion Cardiovascular:Heart rate regular rhythm Lungs & Thorax: Bilateral breath sounds clear to auscultation Abdomen: Bowel sounds normal, soft, no tenderness Skin: Eczematous appearing rash over entire body Back: Normal ROM Extremities: No edema Neurologic: Alert, agitated, does not answer questions other than a few yes no. He moves all extremities. He is protecting airway. Current Patient Data Vital Signs Vital Signs Date Time Temp Pulse Resp B/P (MAP) Pulse Ox O2 Delivery O2 Flow Rate FiO2 10/17/21 07:59 98.1 74 14 135/75 (95) 100 Room Air Lab Results Laboratory Tests Test 10/16/21 15:20 10/16/21 20:20 10/17/21 02:05 10/17/21 04:35 White Blood Count 5.0 x10^3/uL (4.0-11.0) Red Blood Count 2.66 x10^6/uL (4.30-5.70) L Hemoglobin 8.6 g/dL (13.0-17.5) L Hematocrit 26.3 % (39.0-53.0) L Mean Corpuscular Volume 99 fL (79-100) Mean Corpuscular Hemoglobin 32 pg (25-35) Mean Corpuscular Hemoglobin Concent 33 g/dL (31-37) Red Cell Distribution Width 19.2 % (11.5-14.5) H Platelet Count 130 x10^3/uL (140-400) L Neutrophils (%) (Auto) 55 % (31-73) Lymphocytes (%) (Auto) 18 % (24-48) L Monocytes (%) (Auto) 20 % (0-9) H Eosinophils (%) (Auto) 1 % (0-3) Basophils (%) (Auto) 7 % (0-3) H Neutrophils # (Auto) 2.7 x10^3uL (1.8-7.7) Lymphocytes # (Auto) 0.9 x10^3/uL (1.0-4.8) L Monocytes # (Auto) 1.0 x10^3/uL (0.0-1.1) Eosinophils # (Auto) 0.0 x10^3/uL (0.0-0.7) Basophils # (Auto) 0.3 x10^3/uL (0.0-0.2) H Sodium Level 143 mmol/L (136-145) Potassium Level 3.9 mmol/L (3.5-5.1) Chloride Level 109 mmol/L (98-107) H Carbon Dioxide Level 19 mmol/L (21-32) L Anion Gap 15 (6-14) H Blood Urea Nitrogen 17 mg/dL (8-26) Creatinine 1.0 mg/dL (0.7-1.3) Estimated GFR (Cockcroft-Gault) 80.8 BUN/Creatinine Ratio 17 (6-20) Glucose Level 110 mg/dL (70-99) H Calcium Level 8.6 mg/dL (8.5-10.1) Magnesium Level 1.4 mg/dL (1.8-2.4) L Total Bilirubin 2.6 mg/dL (0.2-1.0) H Aspartate Amino Transferase (AST) 103 U/L (15-37) H Alanine Aminotransferase (ALT) 39 U/L (16-63) Alkaline Phosphatase 159 U/L (46-116) H Creatine Kinase 82 U/L (39-308) Creatine Kinase MB (Mass) 0.8 ng/mL (0.0-3.6) Creatine Kinase MB Relative Index 1.0 % (0-4) Troponin I High Sensitivity 12 ng/L (4-75) 16 ng/L (4-75) GR-Lsc-Y-Type Natriuretic Peptide 212 pg/mL (0-124) H Total Protein 7.8 g/dL (6.4-8.2) Albumin 2.5 g/dL (3.4-5.0) L Albumin/Globulin Ratio 0.5 (1.0-1.7) L Lipase 550 U/L (73-393) H Salicylates Level < 2.8 mg/dL (2.8-20.0) L Salicylate Last Dose Date Unk Salicylate Last Dose Time Unk Acetaminophen Level < 2.0 mcg/mL (10-30) L Acetaminophen Last Dose Date Unk Acetaminophen Last Dose Time Unk Ethyl Alcohol Level < 10 mg/dL (0-10) Prothrombin Time 15.4 SEC (9.4-11.4) H Prothrombin Time INR 1.5 (0.9-1.1) H Activated Partial Thromboplast Time 32 SEC (23-33) Ammonia 49 mcmol/L (11-34) H SARS-CoV-2 Antigen (Rapid) Negative (NEGATIVE) Urine Collection Type Unknown Urine Color Yellow Urine Clarity Clear Urine pH 7.5 Urine Specific Eckert 1.015 Urine Protein Neg (NEG-TRACE) Urine Glucose (UA) Neg mg/dL (NEG) Urine Ketones (Stick) Neg mg/dL (NEG) Urine Blood Trace (NEG) Urine Nitrite Neg (NEG) Urine Bilirubin Neg (NEG) Urine Urobilinogen Dipstick 1.0 mg/dL (0.2 mg/dL) Urine Leukocyte Esterase Neg (NEG) Urine RBC 1-2 /HPF (0-2) Urine WBC Rare /HPF (0-4) Urine Squamous Epithelial Cells Occ /LPF Urine Bacteria 0 /HPF (0-FEW) Urine Opiates Screen Neg (NEG) Urine Methadone Screen Neg (NEG) Urine Barbiturates Neg (NEG) Urine Phencyclidine Screen Neg (NEG) Urine Amphetamine/Methamphetamine Neg (NEG) Urine Benzodiazepines Screen Neg (NEG) Urine Cocaine Screen Neg (NEG) Urine Cannabinoids Screen Neg (NEG) Urine Ethyl Alcohol Neg (NEG) EKG EKG [] Radiology/Procedures Radiology/Procedures [] Heart Score C/O Chest Pain: No Risk Factors: Risk Factors: DM, Current or recent (<one month) smoker, HTN, HLP, family history of CAD, obesity. Risk Scores: Risk Factors: DM, Current or recent (<one month) smoker, HTN, HLP, family history of CAD, obesity. Course & Med Decision Making Course & Med Decision Making Pertinent Labs and Imaging studies reviewed. (See chart for details) 07:00: Patient is seen and examined. I assumed care from Dr. Clark. Admission pending at this time. Patient is confused but stable otherwise. Is requiring some Ativan to help with agitation. 08:00: Additional dose of Ativan given. Patient attempting to get out of the bed. Voids on the floor 08:45: Admission pending, Bridge orders placed. Patient remained stable. Currently sleeping but arouses easily. Repeat BMP and ammonia levels are sent Dragon Disclaimer Dragon Disclaimer This electronic medical record was generated, in whole or in part, using a voice recognition dictation system. Departure Departure: Impression: Primary Impression: Hepatic encephalopathy Additional Impressions: Alcoholism Liver cirrhosis Hypomagnesemia Disposition: 02 SHORT TERM HOSPITAL Condition: STABLE Referrals: JOSE F ALDANA MD (PCP) Problem Qualifiers NICO AHUJA DO Oct 17, 2021 08:38
[2021-10-17 10:52] LABS: CALCIUM 8.6 mg/dL (8.5-10.1); CREATININE 0.9 mg/dL (0.7-1.3); GFR 91.3; POTASSIUM 4.1 mmol/L (3.5-5.1)
--- NOTE | 2021-10-17 12:12 | HP ---
DATE OF SERVICE: 10/17/2021 ADMIT DATE: 10/17/2021 ATTENDING PHYSICIAN: Dr. Azevedo. CHIEF COMPLAINT: Alcohol withdrawal. HISTORY OF PRESENT ILLNESS: The patient has been in the ER for the last 36 hours. He is a chronic alcoholic and unfortunately he has drank himself into his condition. He drinks heavily. He has significant cirrhosis of the liver and he has encephalopathy. He is very agitated, requiring high amounts of Ativan. No family is here. He required a patient safety compliance specialist. He is admitted to the medical service for alcohol withdrawal and treatment of chronic alcoholism as well as alcoholic liver disease. PAST MEDICAL HISTORY: Gleaned from the chart. He has hypertension. He is noncompliant. Alcoholic cirrhosis, anemia of chronic disease and psoriasis. He also has iron deficiency anemia, most likely due to gastrointestinal blood loss. ALLERGIES: HE HAS ALLERGIES TO LISINOPRIL. SOCIAL HISTORY: He is a drinker, heavy as noted. FAMILY HISTORY: Unobtainable. REVIEW OF SYSTEMS: Unobtainable. CURRENT MEDICATIONS: None in the ED, he did receive azithromycin, ceftriaxone, folic acid and lots of Ativan. PHYSICAL EXAMINATION: GENERAL: When I saw him, this is an obtunded gentleman, appearing older than stated age. VITAL SIGNS: Initial vital signs showed a blood pressure 136/75, pulse is 74 and regular, oxygen saturation 100% on room air. HEENT: Head is without trauma. Pupils are reactive. Sclerae slightly icteric. Oropharynx is clear. No stridor. NECK: Supple, no bruits. LUNGS: Shallow respirations. CARDIOVASCULAR: Showed regular heart tones. No gallop. ABDOMEN: Soft. EXTREMITIES: Without edema. NEUROLOGIC: Encephalopathic. He is curled up in a position. He is nonambulatory. PERTINENT LABORATORY STUDIES: His hemoglobin on admission was 8.6 g/dL with a MCV of 99, which is still elevated. White count 5000. Serology was negative for coronavirus. INR is 1.5. Chemistry panel: Sodium 141 mEq, potassium 4.1, creatinine 0.9 mg/dL. Ammonia level was 63. Troponins were unremarkable. Toxicology screen unremarkable for any other recreational drugs. Urinalysis was clear. ASSESSMENT: 1. A 46-year-old gentleman with acute alcohol intoxication. 2. Chronic alcoholism. 3. Alcoholic cirrhosis. 4. Hepatic encephalopathy. 5. Known cirrhosis documented on CT scan. 6. Anemia of chronic disease. 7. Noncompliance of meds. PLAN: 1. I am happy to admit him to the medical service. 2. [facility] protocol. 3. He will have a personal safety compliance specialist. 4. We will try to start lactulose when he is able to take oral meds. Right now, he is a high risk of aspiration. His prognosis is quite guarded. PATY/DEREK DR: Yaw TID: [id number]
[2021-10-17] MEDS ORDERED: diphenhydrAMINE 50 MG/ML VIAL IVP PRN (17:00)
[2021-10-17] MEDS ORDERED: LORazepam 40 MG in IV NORMAL SALINE 250ML 250 ML IV PRN (17:00)
[2021-10-17] MEDS ORDERED: LACTULOSE 20 GM/30 ML SOLUTION. PO PRN (17:00)
[2021-10-17] MEDS ORDERED: HALOPERIDOL LACT 5 MG/ML VIAL. IM PRN (17:00)
[2021-10-17] MEDS ORDERED: chlordiazePOXIDE HCL 25 MG CAPSULE PO PRN ×2 (17:00)
[2021-10-17] MEDS ORDERED: LORazepam 1 MG TABLET PO PRN ×2 (17:00)
[2021-10-17] MEDS ORDERED: cloNIDine HCL 0.1 MG TABLET PO PRN (17:00)
[2021-10-17] MEDS ORDERED: AMOXICILLIN/K CLAV 875/125MG TABLET. PO ONE (18:30)
[2021-10-17] MEDS ORDERED: AMOX1TAB61 PO (18:33)
[2021-10-17 18:41] VITALS: BP 123/73
[2021-10-17] MEDS ORDERED: LORazepam 1 MG TABLET PO ONE (18:45)
[2021-10-17] MEDS ORDERED: HYDROCORTISONE 1% LOTION BOTTLE. TP SCH (21:00)
[2021-10-17] MEDS ORDERED: rifAXIMin 550 MG TABLET PO SCH (21:00)
[2021-10-18] MEDS ORDERED: MVI, ADULT NO.4 WITH VIT K 10 ML, THIAMINE INJ 100 MG, FOLIC ACID INJ 1 MG in IV NORMAL... IV SCH (09:00)
[2021-10-18] MEDS ORDERED: CITALOPRAM 20 MG TABLET. PO SCH (09:00)
--- NOTE | 2021-10-19 03:31 | DS ---
DATE OF DISCHARGE: 10/17/2021 ATTENDING PHYSICIAN: Dr. Azevedo. FINAL DISCHARGE DIAGNOSES: 1. Alcoholic cirrhosis. 2. Chronic alcoholism. 3. Alcohol withdrawal syndrome. 4. Hepatic encephalopathy. 5. Cirrhosis of the liver. 6. Noncompliance of meds. 7. Essential hypertension. 8. Anemia due to alcoholism. HISTORY AND PHYSICAL: The patient is a 46-year-old gentleman who continues to drink. He has significant cirrhosis of the liver. Supposedly he is on transplant team at [facility]; however, he is not going to get one given his history of continued drinking. He lives with his mother. He was supposed to be on lactulose and Xifaxan, but he has not been compliant with his meds. PHYSICAL EXAMINATION: Please see the dictated note. PERTINENT LABORATORY AND X-RAY STUDIES: On the database. His ammonia level did partly correlate with his clinical symptoms. His hemoglobin was diminished at 8.3 grams. COURSE IN THE HOSPITAL: He was actually admitted from the ED. He spent 2 nights in the ED. No beds were available. I saw ____ on the morning of 10/17 and admitted him to the medical service. No beds were available. Later that evening at about 1800 hours, I got a call from the ER physician, ____. He was alert, sober, was stable and was ready for discharge. Therefore, he was able to discharge him home with continuation of his Xifaxan and lactulose. I encouraged him to avoid alcohol use, whether or not he will quit drinking remains to be seen. He will follow up with his primary care physician as scheduled. He was discharged then from the ED in stable condition with explicit drug and followup care. PATY/DEMETRIA/HAILEY DR: Yaw TID: [id number] CC: JOSE F ALDANA MD
[2021-10-22] MEDS ORDERED: THIAMINE IM 200 MG/2 ML VIAL. IM SCH (09:00)
[2021-10-22] MEDS ORDERED: THIAMINE INJ 100 MG in IV NORMAL SALINE 50ML 50 ML IV SCH (09:00)
[2021-10-23] MEDS ORDERED: THIAMINE 100 MG TABLET. PO SCH (09:00)
[2021-10-23] MEDS ORDERED: FOLIC ACID 1 MG TABLET PO SCH (09:00)
[2021-10-23] MEDS ORDERED: MULTIVITAMIN with MINERAL TABLET. PO SCH (09:00)
== END 2021-10-17 19:09 | disposition home or self-care (01) ==
LOC: ER 15:03 → INTOOBSV 10-17 08:44 → ER HOLD 10-17 08:44
PROVIDERS: ADMIT Hospitalist; ATTEND Hospitalist
DX: K70.30 Alcoholic cirrhosis of liver without ascites (principal); Z20.822 Contact with and (suspected) exposure to COVID-19; F10.239 Alcohol dependence with withdrawal, unspecified; K72.90 Hepatic failure, unspecified without coma; D64.9 Anemia, unspecified; I10 Essential (primary) hypertension; E83.42 Hypomagnesemia; D63.8 Anemia in other chronic diseases classified elsewhere; K76.6 Portal hypertension; Z90.49 Acquired absence of other specified parts of digestive tract; Z91.14 Patient's other noncompliance with medication regimen; Z79.899 Other long term (current) drug therapy; Z98.890 Other specified postprocedural states
CPT/HCPCS: 36415; 70450; 71045; 74177; 80048; 80053; 80307; 80329; 81001; 82140; 82553; 83690; 83735; 83880; 84443; 84484; 85025; 85610; 85730; 87426; 93005; 96361; 96365; 96366; 96367; 96368; 96375; 96376; 99285; G0378; G0480; J0456; J0696; J2060; J3475; J7030; J7050; J7120; Q9967; U0003; G0379

== ENCOUNTER 2022-03-04 15:31 | Emergency (ER) | payer OTHER ==
[~2022-03-04] VITALS: Ht 172.7 cm; Wt 73.3 kg
[~2022-03-04 15:31] MED LIST: AMOX1TAB61 PO
--- NOTE | 2022-03-04 16:04 | PHYS DOC ---
Past History Past Medical History: Alcoholism, Anemia, Hypertension, Liver Disease, Other Additional Past Medical Histor: ETOH abuse; low Hgb; low iron; psoriasis Past Surgical History: Appendectomy Alcohol Use: Heavy General Adult HPI: HPI: Patient is a 46-year-old male coming in for injury to his right face. Happened about 2 to 3 hours ago, patient encouraged to come in by daughter. Patient is a history of alcohol abuse and had a fall a few days ago as well and struck the left side of his face on a coffee table. Patient denies any blood thinner use but states that he has a history of low platelets. Tetanus up-to-date. Per chart review patient has a history of cirrhosis. Review of Systems: Review of Systems: All other systems within normal limits except for as noted in the HPI Allergies: Allergies: Allergies Coded Allergies Type Severity Reaction Last Updated Verified lisinopril Allergy Unknown 10/16/21 Yes Physical Exam: PE: Constitutional: Well developed, well nourished, no acute distress, non-toxic appearance. [] HENT: Normocephalic, atraumatic, bilateral external ears normal, nose normal. [] Eyes: PERRLA, conjunctiva normal, no discharge. [] Neck: No rigidity, supple, no stridor. [] Cardiovascular: Regular rate and rhythm, brisk cap refill [] Lungs & Thorax: Non labored symmetric respirations, no tachypnea or respiratory distress [] Abdomen: Soft, nondistended. Skin: Warm, dry, no erythema, no rash. [] Back: Unremarkable Extremities: No deformities, range of motion grossly intact, no lower extremity edema [] Neurologic: Alert and oriented X 3, no focal deficits noted. [] Psychologic: Affect normal, judgement normal, mood normal. [] EKG: EKG: [] Radiology/Procedures: Radiology/Procedures: [address] [address] IMAGING REPORT Signed PATIENT: ANDRE ZAMAN DACCOUNT: [id number] : 1975 LOCATION: ER AGE: 46 SEX: M EXAM STATUS: REG ER ORD. PHYSICIAN: WHITNEY HOWE MD REASON: fall, right face injury PROCEDURE: CT HEAD AND MAXILLOFACIAL WO Exam: CT head and maxillofacial without contrast INDICATION: Fall, right face injury TECHNIQUE: Sequential axial images through the head and face were obtained without the administration of IV contrast. Exposure: One or more of the following in the visualized dose reduction techniques were utilized for this examination: 1. Automated exposure control 2. Adjustment of the MA and/or KV according to patient size 3. Use of iterative of reconstructive technique Comparisons: None FINDINGS: Head: No focal parenchymal lesion or hemorrhage is identified. There is no midline shift or sulcal effacement. No acute vascular territory infarction is identified. Carbajal-white distinction is preserved. The ventricular system is within normal limits without compression hydrocephalus. The basal cisterns are well maintained. Face: Partial opacification of the right maxillary sinus. Chronic appearing medial wall blowout fracture at the right orbit. Globes and intraorbital contents are normal. Nondisplaced fracture of the left nasal bone. No overlying soft tissue swelling IMPRESSION: 1. No acute traumatic injury at the face. Chronic medial wall blowout fracture at the right orbit. 2. No acute intracranial abnormality. Electronically signed by: Lucas Julien MD (03/04/2022 4:33 PM) [facility] DICTATED AND SIGNED BY: LUCAS JULIEN MD DATE: 03/04/22 [id number] CC: WHITNEY HOWE MD; JOSE F ALDANA MD ~ [] Patient's l had superficial lacerations above left eyebrow and abrasion on right cheek. Cleaned no foreign bodies found, small amount of Dermabond placed cheek abrasion to help stop bleeding. Heart Score: C/O Chest Pain: No Risk Factors: Risk Factors: DM, Current or recent (<one month) smoker, HTN, HLP, family history of CAD, obesity. Risk Scores: Score 0 - 3: 2.5% MACE over next 6 weeks - Discharge Home Score 4 - 6: 20.3% MACE over next 6 weeks - Admit for Clinical Observation Score 7 - 10: 72.7% MACE over next 6 weeks - Early Invasive Strategies Course & Med Decision Making: Course & Med Decision Making Pertinent Labs and Imaging studies reviewed. (See chart for details) Patient's labs consistent with cirrhosis. Also consistent with vitamin deficiencies related to alcohol use. Will give a banana bag and discussed with patient and father taking vitamins at home. Patient has follow-up appointment scheduled with [facility] liver transplant center. [] Alonzo Disclaimer: Dragon Disclaimer: This electronic medical record was generated, in whole or in part, using a voice recognition dictation system. Departure Departure: Impression: Primary Impression: Fall Additional Impression: Facial abrasion Disposition: HOME / SELF CARE / HOMELESS Condition: STABLE Referrals: JOSE F ALDANA MD (PCP) Patient Instructions: Wound Care, [id number] Additional Instructions: Take [id number] vitamins to help with blood counts. Recommend B vitamin complex, zinc, magnesium, and thiamine Pending completion of banana bag at shift change. Patient and father agree to plan to follow-up with liver transplant center WHITNEY HOWE MD March 04, 2022 16:04
[2022-03-04] MEDS ORDERED: LIDOCAINE/EPI/TETRACAINE TOPICAL GEL 3 ML. TP ONE ×2 (16:13→16:30)
--- NOTE | 2022-03-04 16:35 | RAD ---
Exam: CT head and maxillofacial without contrast INDICATION: Fall, right face injury TECHNIQUE: Sequential axial images through the head and face were obtained without the administration of IV contrast. Exposure: One or more of the following in the visualized dose reduction techniques were utilized for this examination: 1. Automated exposure control 2. Adjustment of the MA and/or KV according to patient size 3. Use of iterative of reconstructive technique Comparisons: None FINDINGS: Head: No focal parenchymal lesion or hemorrhage is identified. There is no midline shift or sulcal effaceme nt. No acute vascular territory infarction is identified. Carbajal-white distinction is preserved. The ventricular system is within normal limits without compression hydrocephalus. The basal cisterns are well maintained. Face: Partial opacification of the right maxillary sinus. Chronic appearing medial wall blowout fracture at the right orbit. Globes and intraorbital contents are normal. Nondisplaced fracture of the left nasa l bone. No overlying soft tissue swelling IMPRESSION: 1. No acute traumatic injury at the face. Chronic medial wall blowout fracture at the right orbit. 2. No acute intracranial abnormality. Electronically signed by: Lucas Castro MD (03/04/2022 4:33 PM) [facility]
[2022-03-04 16:52] LABS: BASO # 0.2 x10^3/uL (0.0-0.2); BASO % 4 % (0-3); EOS # 0.1 x10^3/uL (0.0-0.7); EOS % 1 % (0-3); HEMATOCRIT 33.9 % (39.0-53.0); HEMOGLOBIN 11.3 g/dL (13.0-17.5); LYMPH # 1.5 x10^3/uL (1.0-4.8); LYMPH % 26 % (24-48); MEAN CORPUSCULAR HEMOGLOBIN 37 pg (25-35); MEAN CORPUSCULAR HGB CONC 33 g/dL (31-37); MONO # 0.9 x10^3/uL (0.0-1.1); MONO % 16 % (0-9); NEUT # 2.9 x10^3uL (1.8-7.7); NEUT % 52 % (31-73); RED BLOOD COUNT 3.07 x10^6/uL (4.30-5.70); RED CELL DISTRIBUTION WIDTH 15.3 % (11.5-14.5); WHITE BLOOD COUNT 5.5 x10^3/uL (4.0-11.0)
[2022-03-04 16:54] LABS: PLATELET COUNT 42 x10^3/uL (140-400)
[2022-03-04 16:55] LABS: MEAN CORPUSCULAR VOLUME 111 fL (79-100)
[2022-03-04 17:06] LABS: CALCIUM 8.8 mg/dL (8.5-10.1); CREATININE 1.3 mg/dL (0.7-1.3); GFR 59.7; POTASSIUM 4.2 mmol/L (3.5-5.1)
[2022-03-04 17:12] LABS: ALBUMIN 2.5 g/dL (3.4-5.0); ALBUMIN/GLOBULIN RATIO 0.5 (1.0-1.7); MAGNESIUM 1.4 mg/dL (1.8-2.4); PHOSPHORUS 3.8 mg/dL (2.6-4.7); TOTAL BILIRUBIN 3.6 mg/dL (0.2-1.0); TOTAL PROTEIN 7.6 g/dL (6.4-8.2)
[2022-03-04] MEDS ORDERED: MVI, ADULT NO.4 WITH VIT K 10 ML, FOLIC ACID INJ 1 MG, THIAMINE INJ 100 MG in IV RINGER... IV ONE (17:30)
[2022-03-04 17:58] VITALS: BP 123/75
== END 2022-03-04 18:28 | disposition home or self-care (01) ==
LOC: ER 15:31
DX: S00.81XA Abrasion of other part of head, initial encounter (principal); F10.20 Alcohol dependence, uncomplicated; I10 Essential (primary) hypertension; Z86.2 Personal history of diseases of the blood and blood-forming organs and certain disorders involving the immune mechanism; Z88.8 Allergy status to other drugs, medicaments and biological substances; Y90.8 Blood alcohol level of 240 mg/100 ml or more; W18.09XA Striking against other object with subsequent fall, initial encounter; Y93.89 Activity, other specified; Y92.89 Other specified places as the place of occurrence of the external cause; Y99.8 Other external cause status
CPT/HCPCS: 36415; 70450; 70486; 80053; 82140; 83735; 84100; 85025; 85610; 96365; 99284; G0480; J7120